=== PATIENT | female | born 1970 | race Hispanic/Latino ===

== ENCOUNTER 2017-06-27 16:29 | Observation (INO) | payer MEDICARE ==
[~2017-06-27] VITALS: Ht 157.5 cm; Wt 68.3 kg
[~2017-06-27 16:29] MED LIST: BUME2TAB18 PO; BUTA-256 PO; CALC667C10 PO; CARV25TA PO; CLON0.1T PO; CYCL10TA7 PO; FURO40TA5 PO; GABA-529 PO; GLIP10TA9 PO; IBUP-2353 PO; LOSA100T29 PO; PREDAOS OD; RANI150T7 PO; SERT100T12 PO; TRAM50TA4 PO; TYL3 PO
[2017-06-27 17:05] VITALS: BP 171/99
[2017-06-27 17:57] LABS: MEAN CORPUSCULAR HGB CONC 34.1 g/dL (32.0-36.0); MEAN CORPUSCULAR VOLUME 102.7 fL (79-99); NUCLEATED RED BLOOD CELLS 0.1 % (0.0-0.19); PLATELET COUNT (AUTO) 175 K/uL (130-400); RED BLOOD CELL COUNT(AUTO) 1.61 MIL/uL (4.00-5.50); RED CELL DISTRIBUTION WIDTH 15.9 % (11.0-15.5); WHITE BLOOD COUNT (AUTO) 4.3 K/uL (4.8-10.8)
[2017-06-27 18:24] LABS: HEMATOCRIT 16.5 % (36-48)
[2017-06-27 19:41] VITALS: BP 169/94
[2017-06-27 21:22] VITALS: BP 138/85
[2017-06-27 21:27] VITALS: BP 141/81
[2017-06-27 21:37] VITALS: BP 142/87
[2017-06-27] MEDS ORDERED: [UNRECOGNIZED DRUG - CODE] RC (21:45)
[2017-06-27 23:58] VITALS: BP 154/90
[2017-06-28] VITALS (38 sets, daily range): BP systolic 97–199; BP diastolic 58–112
[2017-06-28 05:56] LABS: HEMATOCRIT 19.4 % (36-48)
[2017-06-28] MEDS ORDERED: PROM12.510 PO (07:44)
[2017-06-28 07:56] LABS: POTASSIUM 5.9 mmol/L (3.5-5.1)
[2017-06-28] MEDS ORDERED: CLONIDINE HCL 0.1 MG TABLET ONE (07:56)
[2017-06-28 08:00] LABS: CREATININE 9.4 mg/dL (0.5-1.5)
[2017-06-28] MEDS ORDERED: CLONIDINE HCL 0.1 MG TABLET PO SCH (08:00)
[2017-06-28] MEDS ORDERED: LIDOCAINE HCL 4% LTA SOL 4 ML VIAL ONE (08:03)
[2017-06-28] MEDS ORDERED: DEXAMETHASONE SOD PHOSPHATE 10MG/ML 1ML VIAL ONE (08:03)
[2017-06-28] MEDS ORDERED: LIDOCAINE HCL 2% JELLY 5 ML ONE (08:03)
[2017-06-28] MEDS ORDERED: LIDOCAINE HCL-MPF 1% 5ML AMP IJ ONE (08:03)
[2017-06-28] MEDS ORDERED: ROCURONIUM BROMIDE 10MG/1ML 5ML VL ONE ×2 (08:03→08:09)
[2017-06-28] MEDS ORDERED: LIDOCAINE PF 2% 5ML ABBOJECT ONE (08:03)
[2017-06-28] MEDS ORDERED: GLYCOPYRROLATE 0.2 MG/ML 5 ML VIAL ONE (08:03)
[2017-06-28] MEDS ORDERED: PHENYLEPHRINE HCL 10 MG/ML 1ML VIAL IV ONE (08:03)
[2017-06-28] MEDS ORDERED: ONDANSETRON HCL 4 MG/2 ML VIAL ONE (08:03)
[2017-06-28] MEDS ORDERED: FENTANYL CITRATE PF 50 MCG/1 ML 2ML VIAL ONE (08:04)
[2017-06-28] MEDS ORDERED: PROPOFOL 10 MG/ML 20ML VIAL IV ONE (08:04)
[2017-06-28] MEDS ORDERED: MIDAZOLAM HCL 1 MG/ML 2ML VIAL ONE (08:04)
[2017-06-28] MEDS: GABAPENTIN 100 MG CAPSULE PO SCH ×3 (09:00→21:04)
[2017-06-28] MEDS: CARVEDILOL 25 MG TABLET PO SCH ×2 (09:00→21:06)
[2017-06-28] MEDS ORDERED: CYCLOBENZAPRINE HCL 10 MG TABLET PO SCH (09:00)
[2017-06-28] MEDS: CALCIUM ACETATE 667 MG CAPSULE PO SCH ×3 (09:00→21:05)
[2017-06-28] MEDS ORDERED: BUMETANIDE 1 MG TAB PO SCH (09:00)
[2017-06-28] MEDS ORDERED: CEFAZOLIN SODIUM 1 GM VIAL ONE (09:28)
[2017-06-28] MEDS ORDERED: MEPERIDINE-PF 50 MG/ML SYG ONE (10:36)
[2017-06-28] MEDS ORDERED: SODIUM CHLORIDE 0.9% 1000ML 1,000 ML IV ONE (10:42)
[2017-06-28] MEDS ORDERED: MEPERIDINE-PF 75 MG/ML SYG ONE (13:09)
[2017-06-28] MEDS ORDERED: PROMETHAZINE HCL 25 MG/ML 1ML AMPULE IM ONE (13:09)
[2017-06-28] MEDS ORDERED: BISACODYL 10 MG SUPP.RECT RC PRN (13:15)
[2017-06-28] MEDS ORDERED: PROMETHAZINE HCL 25 MG/ML 1ML AMPULE IM PRN ×2 (13:15)
[2017-06-28] MEDS ORDERED: ACETAMINOPHEN-CODEINE 300/30MG TAB PO PRN (13:15)
[2017-06-28] MEDS ORDERED: IBUPROFEN 600 MG TABLET PO PRN (13:15)
[2017-06-28] MEDS ORDERED: DEXTROSE 5 %-0.45 % NACL 1,000 ML IV SCH (13:15)
[2017-06-28] MEDS ORDERED: SIMETHICONE 80 MG TAB.CHEW PO PRN (13:15)
[2017-06-28] MEDS ORDERED: MEPERIDINE-PF 75 MG/ML SYG IM PRN (13:15)
[2017-06-28] MEDS: LOSARTAN 100 MG TABLET PO SCH (14:03)
[2017-06-28] MEDS: CLONIDINE HCL 0.1 MG TABLET PO PRN ×2 (15:06→23:46)
[2017-06-28] MEDS ORDERED: CYCLOBENZAPRINE HCL 10 MG TABLET PO PRN (16:00)
[2017-06-28] MEDS ORDERED: SODIUM POLYSTYRENE SULFONATE 15 GM/60 ML ML PO SCH (16:00)
[2017-06-28] MEDS ORDERED: AMLODIPINE BESYLATE 5 MG TAB PO SCH (16:00)
[2017-06-28] MEDS ORDERED: MINOXIDIL 2.5 MG TAB PO SCH (16:00)
[2017-06-28 16:34] LABS: HEMATOCRIT 28.4 % (36-48)
[2017-06-28] MEDS: INSULIN HUMULIN R 100 UNIT/ML 3ML SQ SCH ×2 (17:29→21:00)
[2017-06-28] MEDS ORDERED: SERTRALINE HCL 50 MG TABLET PO SCH (21:00)
[2017-06-28] MEDS ORDERED: INSULIN HUMULIN R 100 UNIT/ML 3ML SQ SCH (21:00)
[2017-06-28] MEDS: DOCUSATE SODIUM 100 MG CAP PO PRN (21:13)
[2017-06-28] MEDS: MORPHINE SULFATE 2 MG/ML 1ML SYG IVP PRN ×2 (21:14→23:52)
[2017-06-28] MEDS ORDERED: SODIUM CHLORIDE 0.9% 10 ML VIAL ONE (21:17)
[2017-06-29 01:00] VITALS: BP 135/80
[2017-06-29 04:00] VITALS: BP 144/87
[2017-06-29] MEDS: MORPHINE SULFATE 2 MG/ML 1ML SYG IVP PRN ×3 (04:04→13:27)
[2017-06-29 06:14] LABS: HEMATOCRIT 23.8 % (36-48)
[2017-06-29] MEDS ORDERED: ALBUMIN (HUMAN) 25% 100 ML IV PRN (06:45)
[2017-06-29] MEDS ORDERED: SODIUM CHLORIDE 0.9% 1000ML 1,000 ML IV PRN (06:45)
[2017-06-29] MEDS ORDERED: 0.9% SODIUM CHLORIDE 250 ML IV BAG IV PRN (06:45)
[2017-06-29 06:47] LABS: CREATININE 10.1 mg/dL (0.5-1.5)
[2017-06-29 06:48] LABS: POTASSIUM 6.4 mmol/L (3.5-5.1)
[2017-06-29 07:30] VITALS: BP 146/87
[2017-06-29] MEDS: INSULIN HUMULIN R 100 UNIT/ML 3ML SQ SCH ×2 (07:30→11:30)
[2017-06-29] MEDS ORDERED: GLIPIZIDE 5 MG TABLET PO SCH (09:00)
[2017-06-29] MEDS ORDERED: EPOETIN ALFA 10,000 UNIT/ML VIAL SQ SCH (09:00)
[2017-06-29] MEDS: IRON SUCROSE COMPLEX 100 MG in SODIUM CHLORIDE 0.9% 50 ML IV SCH ×2 (09:00→09:45)
[2017-06-29] MEDS: DOCUSATE SODIUM 100 MG CAP PO PRN (10:34)
[2017-06-29] MEDS: CALCIUM ACETATE 667 MG CAPSULE PO SCH ×2 (10:42→14:14)
[2017-06-29] MEDS: CARVEDILOL 25 MG TABLET PO SCH (10:44)
[2017-06-29] MEDS: GABAPENTIN 100 MG CAPSULE PO SCH ×2 (10:46→14:14)
[2017-06-29] MEDS: LOSARTAN 100 MG TABLET PO SCH (10:47)
[2017-06-29 11:17] VITALS: BP 141/82
== END 2017-06-29 14:40 | disposition home or self-care (01) ==
LOC: WSH 16:29
PROVIDERS: ADMIT Obstetrics & Gynecology; ATTEND Obstetrics & Gynecology
DX: N92.1 Excessive and frequent menstruation with irregular cycle (principal); D50.0 Iron deficiency anemia secondary to blood loss (chronic); N73.6 Female pelvic peritoneal adhesions (postinfective); K46.9 Unspecified abdominal hernia without obstruction or gangrene; E87.5 Hyperkalemia; I12.0 Hypertensive chronic kidney disease with stage 5 chronic kidney disease or end stage renal disease; E11.40 Type 2 diabetes mellitus with diabetic neuropathy, unspecified; E11.22 Type 2 diabetes mellitus with diabetic chronic kidney disease; N18.6 End stage renal disease; F32.9 Major depressive disorder, single episode, unspecified; Z99.2 Dependence on renal dialysis; Z83.3 Family history of diabetes mellitus; Z82.49 Family history of ischemic heart disease and other diseases of the circulatory system; Z90.710 Acquired absence of both cervix and uterus; Z90.49 Acquired absence of other specified parts of digestive tract; Z98.51 Tubal ligation status
CPT/HCPCS: 36415 ×3; 36430 ×2; 58552; 80048 ×2; 82948 ×3; 85027; 86850; 86900; 86901; 86922 ×3; 88307; 88313 ×2; 96372; 96374; A4215; A4351; A4649 ×4; C1769 ×2; G0378 ×47; J0690; J0885 ×2; J1100; J1756; J1815; J2001; J2175 ×2; J2250; J2370; J2405; J2550; J2704; J3010; J3490 ×4; J7030 ×4; P9016 ×4; 90935; G0257

== ENCOUNTER 2019-10-05 06:01 | Day surgery (SDC) | payer MEDICARE ==
[~2019-10-05] VITALS: Ht 157.5 cm; Wt 59.0 kg
[2019-10-05] VITALS (28 sets, daily range): BP systolic 75–193; BP diastolic 47–107
[~2019-10-05 06:01] MED LIST changes: +ALPRAZOLAM PO; -BUME2TAB18 PO; +BUME2TAB5 PO; -CALC667C10 PO; -CLON0.1T PO; -CYCL10TA7 PO; -FURO40TA5 PO; -GABA-529 PO; -GLIP10TA9 PO; +GLYBURIDE PO; -IBUP-2353 PO; +INSLAN SQ; +JANUVIA PO; +LISINOPRIL PO; -LOSA100T29 PO; +LYRICA PO; -PREDAOS OD; -RANI150T7 PO; -TRAM50TA4 PO; -TYL3 PO
[2019-10-05] MEDS ORDERED: SODIUM CHLORIDE 0.9% 1000ML 1,000 ML IV ONE (06:40)
[2019-10-05] MEDS: CEFUROXIME SODIUM 1.5 GM VIAL ONE ×2 (06:41→08:20)
[2019-10-05 06:51] LABS: INR 0.97 (0.85-1.15); PARTIAL THROMBOPLASTIN TIME 26.2 SEC (26.3-35.5); PROTHROMBIN TIME 10.5 SEC (9.6-11.6)
[2019-10-05] MEDS ORDERED: CEFAZOLIN SODIUM 1 GM VIAL ONE (07:01)
[2019-10-05 07:03] LABS: BASOPHILS % (AUTO) 0.6 % (0.0-5.0); EOSINOPHILS % (AUTO) 2.8 % (0.0-8.0); HEMATOCRIT 31.6 % (36-48); LYMPHOCYTES % (AUTO) 10.1 % (21.0-51.0); MEAN CORPUSCULAR HEMOGLOBIN 29.7 pg (27.0-33.0); MEAN CORPUSCULAR HGB CONC 29.7 g/dL (32.0-36.0); MEAN CORPUSCULAR VOLUME 99.7 fL (79-99); MONOCYTES % (AUTO) 7.2 % (3.0-13.0); NEUTROPHILS % (AUTO) 79.1 % (40.0-77.0); PLATELET COUNT (AUTO) 114 K/uL (130-400); RED BLOOD CELL COUNT(AUTO) 3.17 MIL/uL (4.00-5.50); RED CELL DISTRIBUTION WIDTH 15.9 % (11.0-15.5)
[2019-10-05 07:17] LABS: HEMOGLOBIN A1C 10.7 % (4.0-6.0)
[2019-10-05 07:34] LABS: ALBUMIN 3.2 g/dL (3.5-5.0); BILIRUBIN,TOTAL 0.5 mg/dL (0.2-1.0); CREATININE 7.1 mg/dL (0.5-1.5); POTASSIUM 5.1 mmol/L (3.5-5.1); TOTAL PROTEIN, SERUM 7.3 g/dL (6.0-8.3)
[2019-10-05] MEDS ORDERED: INSULIN HUMULIN R 100 UNIT/ML 3ML ONE ×2 (07:40→08:52)
[2019-10-05] MEDS ORDERED: KETAMINE 50MG/ML SYRINGE 50 MG/ML DISP.SYRIN IV ONE (07:43)
[2019-10-05] MEDS ORDERED: ROPIVACAINE 0.5% 5MG/ML 30ML IJ ONE (07:43)
[2019-10-05] MEDS ORDERED: MIDAZOLAM HCL 1 MG/ML 2ML VIAL ONE (07:45)
--- NOTE | 2019-10-05 07:45 | NUR ---
BLOOD SUGAR 575 VIA GLUCOMETER LAB DRAW 603 REGULAR INSULIN 10 UNITS GIVEN IV Addendum: 10/05/19 at 0959 by LARISA BARAJAS RN RN Amended: Links added.
[2019-10-05] MEDS ORDERED: PROPOFOL 10 MG/ML 20ML VIAL IV ONE (08:01)
[2019-10-05] MEDS ORDERED: FENTANYL CITRATE PF 50 MCG/1 ML 2ML VIAL ONE (08:02)
[2019-10-05] MEDS ORDERED: ROCURONIUM 10MG/1ML SYR 10 MG/ML ML ONE ×2 (08:02→09:01)
[2019-10-05] MEDS ORDERED: CARV25TA PO (08:29)
[2019-10-05] MEDS ORDERED: GLYB5TAB8 PO (08:31)
[2019-10-05] MEDS ORDERED: LISI40TA4 PO (08:31)
[2019-10-05] MEDS ORDERED: SERT100T12 PO (08:34)
[2019-10-05] MEDS ORDERED: PREG50 PO (08:35)
[2019-10-05] MEDS ORDERED: ALPR-409 PO (08:36)
[2019-10-05] MEDS ORDERED: BUTA1CAP44 PO (08:38)
[2019-10-05] MEDS ORDERED: BUME2TAB5 PO (08:39)
[2019-10-05] MEDS ORDERED: SITA50TA PO (08:40)
[2019-10-05] MEDS ORDERED: NIFE90TA65 PO (08:41)
[2019-10-05] MEDS ORDERED: CYCL10TA7 PO (08:43)
[2019-10-05] MEDS ORDERED: MINO2.5T3 PO (08:44)
[2019-10-05] MEDS ORDERED: EPHEDRINE SULFATE 50 MG/ML AMPULE ONE (08:58)
[2019-10-05] MEDS ORDERED: NEOSTIGMINE 5MG/5ML SYR IV ONE (09:55)
[2019-10-05] MEDS ORDERED: GLYCOPYRROLATE 1 MG/5 ML SYRINGE ONE (09:55)
[2019-10-05] MEDS ORDERED: TRAM50TA4 PO (10:12)
[2019-10-05] MEDS ORDERED: TRAMADOL HCL 50 MG TABLET PO PRN ×2 (10:15)
--- NOTE | 2019-10-05 12:30 | NUR ---
BLEEDING pt dressing on left av fistula site saturated with bright red blood . pressure applied to site gushed bright red blood applied 4x4s pressure held . Notified Dr Price Addendum: 10/05/19 at 1254 by LARISA BARAJAS RN RN Amended: Links added.
--- NOTE | 2019-10-05 12:45 | NUR ---
Dr Price here pressure held by Dr Price held pressure and changed dressing ,pressure dressing applied
--- NOTE | 2019-10-05 13:20 | NUR ---
RECEIVED REPORT FROM LARISA BARAJAS RN AT BEDSIDE. PATIENT EATING LUNCH IN BED AT THIS TIME. DRESSING TO LEFT ARM (PRESSURE DRESSING) IS DRY AND INTACT. PATIENT DENIES ANY PAIN AT THIS TIME.
--- NOTE | 2019-10-05 13:28 | NUR ---
1320 report given to Justine Vera RN Addendum: 10/05/19 at 1331 by LARISA BARAJAS RN RN Amended: Links added.
--- NOTE | 2019-10-05 14:45 | NUR ---
DISCHARGE INSTRUCTIONS PROVIDED TO PATIENT'S DAUGHTER (OLIVE VAUGHAN) VIA TELEPHONE. FOLLOW UP APPOINTMENT PROVIDED AND INCISION CARE INSTRUCTIONS EXPLAINED. ALL QUESTIONS/CONCERNS ADDRESSED. EXPLAINED TO DAUGHTER THAT THE PAIN MEDICATION WAS CALLED INTO PHARMACY TO BE PICKED UP.
--- NOTE | 2019-10-05 15:00 | NUR ---
DRESSING TO LEFT ARM DRY/INTACT. REMOVED DRESSING IN ORDER TO ACCESS SURGICAL INCISION. INCISION APPEARS WELL APPROXIMATED WITH DERMABOND, NO BLEEDING, NO DRAINAGE NO HEMATOMA NOTED. REPLACED PRESSURE DRESSING TO PATIENT'S LEFT ARM.
--- NOTE | 2019-10-05 15:20 | NUR ---
PATIENT DISCHARGED FROM FACILITY VIA WHEELCHAIR AND ASSISTED INTO PRIVATE VEHICLE DRIVEN BY DAUGHTER. PATIENT'S WALKER/BELONGINGS WERE GIVEN TO DAUGHTER AND PLACED INTO VEHICLE.
== END 2019-10-05 15:20 | disposition home or self-care (01) ==
LOC: DAH 06:01
PROVIDERS: ATTEND Thoracic Surgery (Cardiothoracic Vascular Surgery)
DX: T82.858A Stenosis of other vascular prosthetic devices, implants and grafts, initial encounter (principal); E11.22 Type 2 diabetes mellitus with diabetic chronic kidney disease; I13.2 Hypertensive heart and chronic kidney disease with heart failure and with stage 5 chronic kidney disease, or end stage renal disease; I50.9 Heart failure, unspecified; N18.6 End stage renal disease; Y83.2 Surgical operation with anastomosis, bypass or graft as the cause of abnormal reaction of the patient, or of later complication, without mention of misadventure at the time of the procedure
CPT/HCPCS: 36415; 36832; 71045; 80053; 82948 ×6; 83036; 85025; 85610; 85730; 93005; A4215; A4221; A4222; A4223; A4649 ×2; A4663; A4930; A6207; C1713 ×2; G0168; J0690; J0697; J1644; J1815 ×2; J2250; J2704; J2710; J2795; J3010; J3490 ×3; J7030 ×2

== ENCOUNTER 2019-10-10 13:06 | Observation (INO) | payer MEDICARE ==
[~2019-10-10] VITALS: Ht 157.5 cm; Wt 65.4 kg
[~2019-10-10 13:06] MED LIST changes: +ALPR-409 PO; -ALPRAZOLAM PO; -BUTA-256 PO; +BUTA1CAP44 PO; +CYCL10TA7 PO; +GLYB5TAB8 PO; -GLYBURIDE PO; -JANUVIA PO; +LISI40TA4 PO; -LISINOPRIL PO; -LYRICA PO; +MINO2.5T3 PO; +NIFE90TA65 PO; +PREG50 PO; +SITA50TA PO; +TRAM50TA4 PO
[2019-10-10 13:46] LABS: BASOPHILS % (AUTO) 0.5 % (0.0-5.0); EOSINOPHILS % (AUTO) 1.8 % (0.0-8.0); HEMATOCRIT 25.4 % (36-48); LYMPHOCYTES % (AUTO) 6.3 % (21.0-51.0); MEAN CORPUSCULAR HGB CONC 32.7 g/dL (32.0-36.0); MEAN CORPUSCULAR VOLUME 94.8 fL (79-99); MONOCYTES % (AUTO) 8.3 % (3.0-13.0); NEUTROPHILS % (AUTO) 82.8 % (40.0-77.0); PLATELET COUNT (AUTO) 158 K/uL (130-400); RED BLOOD CELL COUNT(AUTO) 2.68 MIL/uL (4.00-5.50); RED CELL DISTRIBUTION WIDTH 15.1 % (11.0-15.5)
[2019-10-10 13:58] LABS: INR 0.94 (0.85-1.15); PARTIAL THROMBOPLASTIN TIME 27.2 SEC (26.3-35.5); PROTHROMBIN TIME 10.2 SEC (9.6-11.6)
[2019-10-10 14:00] LABS: ALBUMIN 3.1 g/dL (3.5-5.0); BILIRUBIN,TOTAL 0.4 mg/dL (0.2-1.0); CREATININE 3.8 mg/dL (0.5-1.5); POTASSIUM 4.5 mmol/L (3.5-5.1); TOTAL PROTEIN, SERUM 7.6 g/dL (6.0-8.3)
[2019-10-10] MEDS ORDERED: ONDANSETRON HCL 4 MG/2 ML VIAL IV PRN (15:15)
[2019-10-10] MEDS: INSULIN GLARGINE 100 UNITS/ML 10 ML VIAL SQ SCH (15:15)
[2019-10-10] MEDS ORDERED: NITROGLYCERIN 0.4 MG SL TAB SL PRN (15:15)
[2019-10-10] MEDS ORDERED: HYDRALAZINE HCL 20 MG/ML VIAL IV PRN (15:15)
[2019-10-10] MEDS ORDERED: DiphenhydrAMINE HCL 50 MG/ML VIAL IV PRN (15:15)
[2019-10-10] MEDS ORDERED: ACETAMINOPHEN 325 MG TAB PO PRN ×2 (15:15)
[2019-10-10] MEDS ORDERED: GUAIFENESIN-DM 200/20 MG 10 ML PO PRN (15:15)
[2019-10-10] MEDS ORDERED: INSULIN HUMULIN R 100 UNIT/ML 3ML ONE ×3 (15:15→20:49)
[2019-10-10] MEDS ORDERED: LACTULOSE 20 GM/30 ML UDCUP PO PRN (15:15)
[2019-10-10] MEDS ORDERED: MORPHINE SULFATE 2 MG/ML 1ML SYG IV PRN (15:15)
[2019-10-10] MEDS ORDERED: MAG HYDROX/AL HYDROX/SIMETH ES 30 ML SUSP UDCUP PO PRN (15:15)
[2019-10-10] MEDS ORDERED: ACETAMINOPHEN-CODEINE 300/30MG TAB PO PRN (15:15)
[2019-10-10] MEDS ORDERED: ZOLPIDEM TARTRATE 5 MG TAB PO PRN (15:15)
[2019-10-10] MEDS ORDERED: DIPHENHYDRAMINE HCL 25 MG CAPSULE PO PRN (15:15)
[2019-10-10] MEDS ORDERED: MORPHINE SULFATE 2 MG/ML 1ML SYG ONE ×2 (15:29→20:42)
[2019-10-10] MEDS ORDERED: INSULIN HUMULIN R 100 UNIT/ML 3ML SQ SCH (16:30)
[2019-10-10] MEDS: INSULIN HUMULIN R 100 UNIT/ML 3ML SQ SCH ×2 (16:30→21:00)
[2019-10-10 22:24] VITALS: BP 139/75
[2019-10-10] MEDS ORDERED: GUAI1TBM19 PO (23:00)
[2019-10-10] MEDS ORDERED: IBUP200C5 PO (23:08)
[2019-10-10] MEDS ORDERED: LOPE2CAP PO (23:14)
[2019-10-10 23:43] VITALS: BP 135/68
[2019-10-11 04:00] VITALS: BP 152/80
[2019-10-11 04:00] LABS: BASOPHILS % (AUTO) 0.9 % (0.0-5.0); EOSINOPHILS % (AUTO) 3.5 % (0.0-8.0); HEMATOCRIT 24.8 % (36-48); LYMPHOCYTES % (AUTO) 13.7 % (21.0-51.0); MEAN CORPUSCULAR HEMOGLOBIN 30.3 pg (27.0-33.0); MEAN CORPUSCULAR HGB CONC 31.9 g/dL (32.0-36.0); MONOCYTES % (AUTO) 14.4 % (3.0-13.0); NEUTROPHILS % (AUTO) 67.3 % (40.0-77.0); PLATELET COUNT (AUTO) 185 K/uL (130-400); RED BLOOD CELL COUNT(AUTO) 2.61 MIL/uL (4.00-5.50); RED CELL DISTRIBUTION WIDTH 15.3 % (11.0-15.5); WHITE BLOOD COUNT (AUTO) 4.6 K/uL (4.8-10.8)
[2019-10-11 04:50] LABS: ALBUMIN 2.8 g/dL (3.5-5.0); BILIRUBIN,TOTAL 0.4 mg/dL (0.2-1.0); CREATININE 4.6 mg/dL (0.5-1.5); MAGNESIUM 2.3 mg/dL (1.80-2.40); PHOSPHORUS 4.9 mg/dL (2.5-4.9); POTASSIUM 4.1 mmol/L (3.5-5.1); TOTAL PROTEIN, SERUM 6.6 g/dL (6.0-8.3)
[2019-10-11] MEDS: INSULIN HUMULIN R 100 UNIT/ML 3ML SQ SCH ×2 (06:19→11:30)
[2019-10-11 08:00] VITALS: BP 142/76
[2019-10-11] MEDS ORDERED: ACETAMINOPHEN-CODEINE 300/30MG TAB PO PRN (09:00)
[2019-10-11] MEDS: INSULIN GLARGINE 100 UNITS/ML 10 ML VIAL SQ SCH (09:00)
[2019-10-11] MEDS: GABAPENTIN 100 MG CAPSULE PO SCH ×2 (09:30→13:13)
--- NOTE | 2019-10-11 15:53 | NUR ---
PATIENT DISCHARGE PATIENT DISCHARGED, IV DISCONTINUED, CATHLON INTACT BLEEDING CONTROLLED, PATIENT TOLERATED WITHOUT INCIDENT. TELE REMOVED AND RETURNED. DISCUSSED WITH PATIENT THE NEED TO SCHEDULE FOLLOW UP APPOINTMENT WITH DR. DUNNE. PATIENT HAD NO FURTHER QUESTIONS.
== END 2019-10-11 16:20 | disposition home or self-care (01) ==
LOC: EDH 13:06 → EDHIP 15:03 → 3CH 21:12
PROVIDERS: ADMIT Internal Medicine Pulmonary Disease; ATTEND Internal Medicine Pulmonary Disease
DX: S70.11XA Contusion of right thigh, initial encounter (principal); D64.9 Anemia, unspecified; I12.0 Hypertensive chronic kidney disease with stage 5 chronic kidney disease or end stage renal disease; N18.6 End stage renal disease; E11.65 Type 2 diabetes mellitus with hyperglycemia; E78.5 Hyperlipidemia, unspecified; E11.22 Type 2 diabetes mellitus with diabetic chronic kidney disease; F32.9 Major depressive disorder, single episode, unspecified; F41.9 Anxiety disorder, unspecified; G62.9 Polyneuropathy, unspecified; J00 Acute nasopharyngitis [common cold]; Z79.4 Long term (current) use of insulin; Z79.899 Other long term (current) drug therapy; Z90.710 Acquired absence of both cervix and uterus; Z99.2 Dependence on renal dialysis; Y82.8 Other medical devices associated with adverse incidents; Y93.89 Activity, other specified; Y92.89 Other specified places as the place of occurrence of the external cause; Y99.8 Other external cause status
CPT/HCPCS: 36415 ×2; 71045 ×2; 80053 ×2; 82550; 82948 ×6; 83735; 84100; 84484; 85018 ×2; 85025 ×2; 85610; 85730; 86850; 86900; 86901; 93005; 93971; 96374; 99291; G0378 ×10; J1815 ×3